=== PATIENT | female | born 1940 | race Caucasian/White ===

== ENCOUNTER 2018-03-03 14:21 | Observation (INO) | payer MEDICARE, BC ==
[~2018-03-03 14:21] MED LIST: Gadobenate Dimeglumine 529 MG/1 ML (20ML VIAL) ONE
[2018-03-03] MEDS ORDERED: Bupivacaine 0.5% 10 ML VIAL ONE (15:49)
[2018-03-03] MEDS ORDERED: Lorazepam 2 MG/ML VIAL ONE (15:51)
[2018-03-03] MEDS ORDERED: HYDROcodone/Acetaminophen 10/325 mg Tablet ONE (18:36)
[2018-03-03] MEDS ORDERED: Ketorolac Tromethamine 30 MG/ML VIAL ONE (18:36)
[2018-03-03] MEDS ORDERED: Dexamethasone 10 MG/ML VIAL ONE (18:43)
[2018-03-03] MEDS ORDERED: Metoclopramide HCl 10 MG/2 ML VIAL ONE (18:52)
[2018-03-03] MEDS ORDERED: diphenhydrAMINE 50 MG/ML VIAL ONE (18:52)
--- NOTE | 2018-03-03 19:10 | PDOC.FPRHP ---
- History of Present Illness Chief Complaint: Neck Pain History of Present Illness: 77 yo f c/o right sided neck pain started after waking this afternoon at 2. Initially 10/10, described as constant and sharp, does not radiate. Denies headache or vision changes, denies numbness and tingling. States it hurts to put her chin to her chest. At home she tried taking her husbands muscle relaxer , fioricet, and Xanax with no relief. She denies fevers or recent illness. ED Course: [place] ED: Zofran 4mg, Dilaudid 1mg, Morphine 4mg, morphine 4mg, zofran 4mg, 1L NS [facility] ED: Metoclopramide 10mg, 1L NS, Diphenhydramine 25, decadron 10, [place] 10, Toradol 15mg, Ativan 1mg - Allergies/Adverse Reactions Allergies Allergy/AdvReac Type Severity Reaction Status Date / Time No Known Allergies Allergy Verified 12/12/12 13:01 - Home Medications Medication Instructions Recorded Confirmed Type ALPRAZolam [Xanax] 0.5 mg PO BID 12/12/12 12/12/12 History Nortriptyline [Pamelor] 10 mg PO DAILY 12/12/12 12/12/12 History Amlodipine [Norvasc] 10 mg PO QAM 03/03/18 03/03/18 History - History PMHx: Tobacco Abuse, HTN, Anxiety PSHx: Liver FHx: mom had breast cancer Social: 1pk/day for 50 years - Review of Systems General: denies: fever/chills, fatigue Eyes: denies: eye pain, vision changes ENT: denies: nasal congestion, rhinorrhea Respiratory: denies: cough, congestion, shortness of breath Cardiovascular: denies: chest pain, edema Gastrointestinal: denies: nausea, vomiting, diarrhea, constipation, abdominal pain Genitourinary: denies: dysuria, polyuria Skin: denies: rashes, lesions Musculoskeletal: reports: pain (neck). denies: stiffness Neurological: denies: numbness, weakness Psychological: reports: anxiety. denies: depression - Vital signs BP: 139/70 HR: 86 RR: 16 Tmax: 97.6 Pox: 95% on RA Wt: 56kg - Physical Exam Constitutional: NAD, awake, alert and oriented HEENT: normocephalic and atraumatic, PERRLA, MMM, oropharynx clear Neck: supple, no thyromegaly, other (ttp of right cervical neck) Heart: RRR, normal S1/S2, no murmurs/rubs/gallops Lungs: CTAB, no respiratory distress, good air movement Abdomen: soft, non-tender, bowel sounds present, no masses/distention Musculoskeletal: other (decreased rom of cervical spine; but rom of arms b/l intact Denies gait disturbance but did not watch pt walk) Neurological: CN II-XII intact Skin: no rash/lesions, capillary refill <2 seconds Psychiatric: normal mood and affect, good judgment and insight, intact recent and remote memory FMR H&P: Results - Radiology Interpretation CT scan - head Status: report reviewed by me Additional comment: no acute intracranial bleeding Other Status: report reviewed by me Additional comment: CTA head/neck: mild atherosclerosis MRI - head Status: pending FMR H&P: A/P - Problem List (1) Neck pain Current Visit: Yes Status: Acute Code(s): M54.2 - CERVICALGIA (2) HTN (hypertension) Current Visit: Yes Status: Chronic Code(s): I10 - ESSENTIAL (PRIMARY) HYPERTENSION (3) Anxiety Current Visit: Yes Status: Chronic Code(s): F41.9 - ANXIETY DISORDER, UNSPECIFIED (4) Tobacco abuse Current Visit: Yes Status: Chronic Code(s): Z72.0 - TOBACCO USE (5) DJD (degenerative joint disease) Current Visit: Yes Status: Acute Code(s): M19.90 - UNSPECIFIED OSTEOARTHRITIS, UNSPECIFIED SITE - Plan Neck Pain likely 2/2 DJD with C_ herniation - Case discussed with PCP Dr Granados by ED physician, recommended admission for pain control and observation - MRI read pending - Will obtain LP to r/o infectious, hemorrhagic cause - Toradol and [place] for Pain - Zofran PRN for nausea HTN - Continue home Amlodipine Anxiety - Continue home Xanax Tobacco Abuse - Nicotine patch PRN - Encourage Cessation Code Status: FULL DVT ppx: Lovenox FMR H&P: Upper Level - Plan Date/Time: 03/03/181908 DDX: Radiculopathy from herniated disc, rule out meningitis vs SAH I, [], have evaluated this patient and agree with findings/plan as outlined by research program intern resident. Pertinent changes/additions are listed here. Attending Addendum - Attending Addendum Date/Time: 03/04/18140 I personally evaluated the patient and discussed the management with Dr. Lao I agree with the History, Examination, Assessment and Plan documented above with any addition or exceptions noted below. 77 yo female caring for disabled spouse at home c/o acute onset right sided neck pain earlier today she denies Headache, fever, chills, radicular pain Patient with extensive evaluation, concern for SAH and epidural abscess studies including Cervical MRI and Lumbar puncture. Exam alert at present NAD VSS no focal neurological finding alert oriented with limited ROM flexion extension lateral rotation marked cervical paraspinal spasm. LP appears traumatic tap no sign infectious etiology Cervical MRI no sign epidural abscess, notable multilevel disc protrusions and degenerative changes. Will continue observation overnight probable home with short course steroid and muscle relaxor. Patient aware of care plan.
--- NOTE | 2018-03-03 20:05 | MRI ---
MR CERVICAL SPINE WITH AND WITHOUT IV CONTRAST: 03/03/18 INDICATION: 77-year-old female with neck pain and stiffness for two to three days status post fall with concern f or possible epidural abscess. TECHNIQUE: Multiplanar and multisequence MR images were obtained of the cervical spine with and without contrast utilizing 11 mL of Multihance. Comparisons are made with a CTA of the neck dated 03/03/18. FINDINGS: Motion artifact limits image detail. No definite acute abnormal bone marrow signal abnormalities seen to suggest the presence of fracture. There is very subtle anterior translation of C5 on C6 which is likely degenerative in nature. No def inite extra-axial mass-like collection is present on the postcontrast series. There is multilevel spo ndylosis of the cervical spine. At C2-3, there is mild left neural foraminal narrowing due to uncovertebral hypertrophy and facet tayla nt degenerative change. At C3-4, there is moderate left neural foraminal narrowing due to facet osteoarthrosis and uncoverteb ral hypertrophy. At C4-5, there is a mild broad based bulge without appreciable central canal or neural foraminal narr owing. At C5-6, there is an asymmetric to the right broad based bulge with facet hypertrophy and ligamentum flavum hypertrophy inducing mild to moderate central canal narrowing with mild contact of the spinal cord. There is severe right and moderate left neural foraminal narrowing. At C6-7, there is a broad based bulge without appreciable central canal or neural foraminal narrowing . At C7-T1, there is a left paracentral protrusion causing some mild narrowing of the central canal wit hout definite cord compression. There is no appreciable neural foraminal narrowing. No definite abnor mal region of enhancement is demonstrated. IMPRESSION: 1. Spondylosis of the cervical spine most pronounced at C5-6 where there is mild to moderate franklin tral canal narrowing and severe right neural foraminal narrowing. There is also a left paracentral pr otrusion at C7-T1 causing some mild central canal narrowing without definite neural foraminal narrowi ng. 2. No overt MR evidence to suggest the presence of epidural abscess within the cervical spine. 3. No definite acute fracture demonstrated. POS: [facility]
[2018-03-03] MEDS ORDERED: Midazolam HCl 2 mg/2 ml Vial ONE (21:14)
[2018-03-03] MEDS ORDERED: Lidocaine 1% w/Epinephrine 1:100K 20 ML VIAL ONE (21:23)
[2018-03-03 22:53] LABS: CSF, Glucose 86 mg/dl (40-70); CSF, Protein 56 mg/dL (15-40)
[2018-03-03 22:58] LABS: Color Of CSF Supernatant COLORLESS (Colorless); Tube # 2; Unspun CSF Color COLORLESS (Colorless)
[2018-03-03 23:04] LABS: CSF Source CSF; Clarity Hazy (Clear); Tube # 4
[2018-03-03 23:16] LABS: RBC Count - Manual 1400 /cumm (None Seen); WBC/NonHematics Count - Manual 10 /cumm (0-5)
[2018-03-03 23:20] LABS: CSF Source CSF; Clarity Hazy (Clear); Tube # 1
[2018-03-03 23:34] LABS: RBC Count - Manual 11650 /cumm (None Seen); WBC/NonHematics Count - Manual 6 /cumm (0-5)
[2018-03-03] MEDS ORDERED: Ketorolac Tromethamine 30 MG/ML VIAL IVP PRN (23:37)
[2018-03-03] MEDS ORDERED: Ondansetron ODT 4 MG TAB PO PRN (23:37)
[2018-03-03] MEDS ORDERED: HYDROcodone/Acetaminophen 10/325 mg Tablet PO PRN ×2 (23:37)
[2018-03-03] MEDS ORDERED: Ondansetron ODT 8 MG TAB SL PRN (23:37)
[2018-03-03 23:54] LABS: Cell Count Non Hematic 10 %; Lymphocytes 26 %; Segmented Neutrophils 64 %
[2018-03-04 02:14] VITALS: BMI 21.9
[2018-03-04] MEDS ORDERED: Nicotine 14 MG PATCH TD SCH (06:00)
--- NOTE | 2018-03-04 06:59 | PDOC.FM ---
- Subjective Subjective: Patient resting comfortably in bed this morning. Patient notes the tramadol provided relief for about 6 hours last night. The pain has returned, but is improved from last night. Notes it is still painful to turn her head to the left. Notes mild achy pain in left hip this morning. - Objective MAR Reviewed: Yes Vital Signs & Weight: Vital Signs (12 hours) Temp Pulse Resp BP BP Pulse Ox 03/04/18 04:00 98.6 F 88 20 109/60 95 03/03/18 23:37 97.7 F 97 21 H 157/74 H 95 Weight Weight 59.647 kg Result Diagrams: 03/04/18 07:31 03/04/18 07:31 <Monica Nelson - Last Filed: 03/04/18 09:54> - Objective Vital Signs & Weight: Vital Signs (12 hours) Temp Pulse Resp BP BP Pulse Ox 03/04/18 11:46 98 F 85 20 146/72 H 96 03/04/18 07:46 91 03/04/18 07:16 98.1 F 94 19 172/76 H 96 03/04/18 04:00 98.6 F 88 20 109/60 95 Weight Weight 59.647 kg Result Diagrams: 03/04/18 07:31 03/04/18 07:31 <Alexi Flores - Last Filed: 03/04/18 13:29> Phys Exam - Physical Examination Constitutional: NAD HEENT: moist MMs Limited range of motion; TTP of right cervical neck Respiratory: no wheezing, clear to auscultation bilateral Cardiovascular: RRR, no significant murmur, no rub Gastrointestinal: soft, non-tender, no distention, positive bowel sounds Musculoskeletal: no edema, pulses present FROM of extremities; gait nml Neurological: non-focal, normal sensation, moves all 4 limbs CN II-X intact Psychiatric: normal affect, A&O x 3 Skin: no rash <Monica Nelson - Last Filed: 03/04/18 09:54> Dx/Plan (1) DJD (degenerative joint disease) Code(s): M19.90 - UNSPECIFIED OSTEOARTHRITIS, UNSPECIFIED SITE Status: Acute (2) Neck pain Code(s): M54.2 - CERVICALGIA Status: Acute (3) Anxiety Code(s): F41.9 - ANXIETY DISORDER, UNSPECIFIED Status: Chronic (4) HTN (hypertension) Code(s): I10 - ESSENTIAL (PRIMARY) HYPERTENSION Status: Chronic (5) Tobacco abuse Code(s): Z72.0 - TOBACCO USE Status: Chronic - Plan Plan: This is a 77yo F here for neck pain Neck Pain likely 2/2 DJD - Case discussed with PCP Dr Granados by ED physician, recommended admission for pain control and observation - MRI - C2-3: mild left nueral foraminal narrowing due to uncovertebral hypertrophy and facet join degenerative change, C3-4: mod left narrowing due to face osteoarthritis and uncoverterbral hypertrophy; C4-5: mild broad based buldge without appreciable central cancal or neural foraminal narrowing; C5-6: likely degenerative subtle anterior translation - CT brain: no bleed - LP not suggestive of bacterial cause for neck pain - Toradol and [place] for Pain - Zofran PRN for nausea - Likely d/c with medrol pack and tramadol; will get patient to follow up with PCP HTN - Continue home Amlodipine Anxiety - Continue home Xanax Tobacco Abuse - Nicotine patch PRN - Encourage Cessation Code Status: FULL DVT ppx: Lovenox Dispo: likely discharge later today <Monica Nelson - Last Filed: 03/04/18 09:54> (1) Neck pain Code(s): M54.2 - CERVICALGIA Status: Acute (2) HTN (hypertension) Code(s): I10 - ESSENTIAL (PRIMARY) HYPERTENSION Status: Chronic (3) Anxiety Code(s): F41.9 - ANXIETY DISORDER, UNSPECIFIED Status: Chronic (4) Tobacco abuse Code(s): Z72.0 - TOBACCO USE Status: Chronic (5) DJD (degenerative joint disease) Code(s): M19.90 - UNSPECIFIED OSTEOARTHRITIS, UNSPECIFIED SITE Status: Acute <Alexi Flores - Last Filed: 03/04/18 13:29> Attending Addendum - Attending Addendum Date/Time: 03/04/18 [id number] I personally evaluated the patient and discussed the management with Dr. Nelson I agree with the History, Examination, Assessment and Plan documented above with any addition or exceptions noted below. Patient stable for dismissal. <Alexi Flores - Last Filed: 03/04/18 13:29>
[2018-03-04 08:02] LABS: Anion Gap 12 mmol/L (10-20); BUN (Urea Nitrogen) 14 mg/dL (9.8-20.1); Calc. Creatinine Clearance 53 mL/min (70-130); Carbon Dioxide 25 mmol/L (23-31); Chloride 100 mmol/L (98-107); Estimated GFR-MDRD 67; Glucose 116 mg/dL (83-110); Potassium 4.2 mmol/L (3.5-5.1); Sodium 133 mmol/L (136-145)
[2018-03-04 08:08] LABS: #Lymphocytes 1.4 thou/uL (1.20-3.40); #Monocytes 0.8 thou/uL (0.11-0.59); #Neutrophils 8.3 thou/uL (1.40-6.50); %Basophils 0.1 % (0.0-1.0); %Eosinophils 0.1 % (0.0-10.0); %Lymphocytes 13.1 % (21.0-51.0); %Neutrophils 78.7 % (42.0-75.0); Hemoglobin 12.8 g/dL (12.0-16.0); Mean Corpuscular HGB CONC 33.6 g/dL (32.0-36.0); Mean Corpuscular Hemoglobin 31.7 pg (27.0-31.0); Mean Corpuscular Volume 94.3 fL (78.0-98.0); Mean Platelet Volume 6.9 fL (7.4-10.4); Platelet Count 355 thou/uL (130-400); RBC Distribution Width 13.2 % (11.5-14.5); Red Blood Cell (RBC) Count 4.02 mill/uL (4.20-5.40); White Blood Cell (WBC) Count 10.5 thou/uL (4.8-10.8)
[2018-03-04] MEDS ORDERED: ALPRAZolam 0.5 MG TAB PO SCH (09:00)
[2018-03-04] MEDS ORDERED: Amlodipine 10 MG TAB PO SCH (09:00)
[2018-03-04] MEDS ORDERED: Enoxaparin Sodium 40 MG/0.4 ML SYRINGE SC SCH (09:00)
[2018-03-04 11:47] VITALS: BP 146/72; TEMP 98
--- NOTE | 2018-03-04 22:22 | DIS-2 ---
DATE OF ADMISSION: 03/03/2018 DATE OF DISCHARGE: 03/04/2018 RESIDENT: Monica Nelson MD ADMITTING ATTENDING: Dr. Alexi Flores. DISCHARGE ATTENDING: Dr. Alexi Flores. CONSULTATIONS: None. PROCEDURES: None. PRIMARY DIAGNOSES: Cervical disk degeneration. SECONDARY DIAGNOSES: Hypertension, anxiety, tobacco use. DISCHARGE MEDICATIONS: 1. Methylprednisolone (Medrol Dosepak) 4 mg oral as directed. 2. Tramadol hydrochloride (Ultram) 50 mg oral 4 times daily as needed. 3. Alprazolam (Xanax) 0.5 mg oral twice daily. 4. Nortriptyline (Pamelor) 10 mg oral daily. 5. Amlodipine (Norvasc) 10 mg oral every morning. DISCONTINUED MEDICATIONS: None. HISTORY OF PRESENT ILLNESS AND HOSPITAL COURSE: This is a 77-year-old female complaining of right-sided neck pain that began on the afternoon of 03/03/2018. Pain was initially 10/10, described as constant, sharp and nonradiating. Patient denied headache or vision changes, numbness or tingling in extremities. Patient states that she tried taking her 's muscle relaxer, Fioricet, and Xanax with no relief. Patient went to the [place] and received Zofran, Dilaudid, morphine, and normal saline. Patient then came to the [place] and received metoclopramide, normal saline, Benadryl, Decadron, [place], Toradol, and Ativan. Patient had an MRI of the cervical spine that showed subtle anterior translation of the C5 and C6 that is likely degenerative in nature. C2 through C3 showed mild left neuroforaminal narrowing due to hypertrophy and facet joint degenerative change. C3 through C4 showed moderate left neural foraminal narrowing due to facet osteoarthrosis and hypertrophy. C4 through C5 showed mild broad-based bulge without appreciable central canal or neural foraminal narrowing. CT head was also performed that showed atherosclerosis and no acute intracranial abnormalities such as a bleed. CT also ruled out any sign of abscess as cause for her pain. CTA of the head and neck was also performed that showed no abnormal areas of intracranial enhancement and [id number] stenosis involving the origin of each internal carotid artery and the left subclavian artery. Lumbar puncture performed in the ED that ruled out infectious cause for neck pain. The patient's pain was controlled throughout the hospital stay with Toradol. Patient was discharged with tramadol and Medrol Dosepak. Recommended for patient to make lifestyle modifications of not lifting heavy items that will strain her neck and daily exercises. Encouraged smoking cessation. Patient has appointment with PCP, Dr. Fong next Tuesday for follow up. DISPOSITION: Stable. DISCHARGE INSTRUCTIONS: 1. Location: Home. 2. Diet: Heart-healthy. 3. Activity: As tolerated. Limit heavy lifting. 4. Follow up with Dr. Fong, next Tuesday. CHRISTIAN
== END 2018-03-04 13:39 | disposition home or self-care (01) ==
LOC: ERS 14:21 → T4-B 23:26
PROVIDERS: ADMIT Family Medicine; ATTEND Family Medicine
DX: M50.121 Cervical disc disorder at C4-C5 level with radiculopathy (principal); M47.22 Other spondylosis with radiculopathy, cervical region; M48.02 Spinal stenosis, cervical region; M48.03 Spinal stenosis, cervicothoracic region; F41.9 Anxiety disorder, unspecified; I10 Essential (primary) hypertension; F17.210 Nicotine dependence, cigarettes, uncomplicated; M19.90 Unspecified osteoarthritis, unspecified site; Z79.899 Other long term (current) drug therapy
CPT/HCPCS: 62270; 72156; 80048; 82945; 84157; 85025; 85652; 87070; 87205; 89051; 96365; 96372; 96375; 96376; 99285; G0378 ×2; 36415; 85060; A9579; J1100; J1200; J1650; J1885; J2001; J2060; J2250; J2765; J3490